=== PATIENT | female | born 1980 | race Hispanic/Latino ===

== ENCOUNTER 2019-11-07 18:11 | Inpatient (IN) | payer MEDICAID ==
[~2019-11-07] VITALS: Ht 165.1 cm; Wt 68.0 kg
[2019-11-07] MEDS ORDERED: INSULIN HUMULIN R 100 UNIT/ML 3ML ONE ×2 (18:28→19:46)
[2019-11-07 18:33] LABS: BASOPHILS % (AUTO) 0.2 % (0.0-5.0); EOSINOPHILS % (AUTO) 0.1 % (0.0-8.0); HEMATOCRIT 33.1 % (36-48); LYMPHOCYTES % (AUTO) 15.5 % (21.0-51.0); MEAN CORPUSCULAR HGB CONC 27.8 g/dL (32.0-36.0); MEAN CORPUSCULAR VOLUME 107.8 fL (79-99); MONOCYTES % (AUTO) 6.6 % (3.0-13.0); NEUTROPHILS % (AUTO) 76.1 % (40.0-77.0); PLATELET COUNT (AUTO) 429 K/uL (130-400); RED BLOOD CELL COUNT(AUTO) 3.07 MIL/uL (4.00-5.50); RED CELL DISTRIBUTION WIDTH 14.8 % (11.0-15.5); WHITE BLOOD COUNT (AUTO) 8.8 K/uL (4.8-10.8)
[2019-11-07 18:35] LABS: ABG HCO3 10.8 mmol/L (21.0-28.0); ABG OXYGEN SATURATION 95.7 % (95.0-99.0); ABG PCO2 36 mmHg (32-45)
[2019-11-07 18:55] LABS: ALBUMIN 2.4 g/dL (3.5-5.0); BILIRUBIN,TOTAL 0.3 mg/dL (0.2-1.0); CREATININE 2.3 mg/dL (0.5-1.5); POTASSIUM 4.8 mmol/L (3.5-5.1); TOTAL PROTEIN, SERUM 6.7 g/dL (6.0-8.3)
[2019-11-07] MEDS ORDERED: SODIUM CHLORIDE 0.9% 1000ML 1,000 ML IV SCH ×2 (19:22)
[2019-11-07] MEDS ORDERED: DEXTROSE 5 %-0.45 % NACL 1,000 ML IV PRN (19:22)
[2019-11-07] MEDS ORDERED: POTASSIUM CHLORIDE 10MEQ/100ML 100 ML IV PRN (19:30)
[2019-11-07] MEDS ORDERED: LACTULOSE 20 GM/30 ML UDCUP PO PRN (19:30)
[2019-11-07] MEDS ORDERED: ACETAMINOPHEN 325 MG TAB PO PRN ×2 (19:30)
[2019-11-07] MEDS ORDERED: SODIUM CHLORIDE 0.9% 100 ML IV ONE (19:48)
[2019-11-07 19:59] LABS: HEMOGLOBIN A1C 11.1 % (4.0-6.0)
[2019-11-07 20:06] LABS: THYROID STIMULATING HORMONE 0.58 uIU/mL (0.36-3.74)
[2019-11-07] MEDS ORDERED: LORAZEPAM 2 MG/ML 1 ML VIAL ONE (20:06)
[2019-11-07 20:20] LABS: APPEARANCE,URINE Cloudy (CLEAR); BILIRUBIN,URINE Negative (NEGATIVE); COLOR,URINE Yellow (YELLOW); GLUCOSE, URINE (UA) >=1000 mg/dL (NEGATIVE); KETONES,URINE 15 mg/dL (NEGATIVE); LEUKOCYTE ESTERASE ,URINE Negative (NEGATIVE); NITRATE,URINE Negative (NEGATIVE); OCCULT BLOOD,URINE Trace (NEGATIVE); PROTEIN,URINE 300 mg/dL (NEGATIVE); UROBILINOGEN,URINE 0.2 mg/dL (0.2-1.0)
[2019-11-07 20:23] LABS: HCG,QUAL RESULT NEGATIVE (NEGATIVE)
[2019-11-07 20:27] LABS: AMPHET/METH SCREEN,URINE NEGATIVE (NEGATIVE); BARBITURATE SCREEN, URINE NEGATIVE (NEGATIVE); BENZODIAZEPINES SCREEN,URINE POSITIVE (NEGATIVE); CANNABINOID SCREEN,URINE NEGATIVE (NEGATIVE); COCAINE SCREEN,URINE NEGATIVE (NEGATIVE); OPIATE SCREEN,URINE NEGATIVE (NEGATIVE); PHENCYCLIDINE SCREEN,URINE NEGATIVE (NEGATIVE)
[2019-11-07 20:42] LABS: WBC,URINE 0-1 /HPF (0-1)
[2019-11-07 20:43] LABS: BACTERIA,URINE Moderate /HPF (None Seen); SQUAMOUS EPITHELIAL CELL,UR Rare /HPF (0-2)
[2019-11-07] MEDS: FAMOTIDINE/PF 20 MG/2 ML VIAL IV SCH (21:00)
[2019-11-07] MEDS: CEFTRIAXONE SODIUM 1 GM IVP SCH (21:00)
[2019-11-07] MEDS: INSULIN HUMULIN R 100 UNIT/ML 3ML SQ SCH (21:00)
[2019-11-07 22:00] LABS: ABG BASE EXCESS -10.3 mmol/L (-2.0-3.0); ABG HCO3 16.5 mmol/L (21.0-28.0); ABG OXYGEN SATURATION 90.2 % (95.0-99.0); ABG PCO2 39 mmHg (32-45)
[2019-11-07] MEDS ORDERED: CEFTRIAXONE SODIUM 1 GM ONE (22:09)
[2019-11-07 23:28] LABS: BASOPHILS % (AUTO) 0.2 % (0.0-5.0); EOSINOPHILS % (AUTO) 0.2 % (0.0-8.0); HEMATOCRIT 25.4 % (36-48); LYMPHOCYTES % (AUTO) 16.2 % (21.0-51.0); MEAN CORPUSCULAR HEMOGLOBIN 29.7 pg (27.0-33.0); MEAN CORPUSCULAR HGB CONC 31.9 g/dL (32.0-36.0); MONOCYTES % (AUTO) 8.7 % (3.0-13.0); NEUTROPHILS % (AUTO) 73.7 % (40.0-77.0); PLATELET COUNT (AUTO) 371 K/uL (130-400); RED BLOOD CELL COUNT(AUTO) 2.73 MIL/uL (4.00-5.50); RED CELL DISTRIBUTION WIDTH 14.1 % (11.0-15.5); WHITE BLOOD COUNT (AUTO) 9.3 K/uL (4.8-10.8)
[2019-11-07 23:47] LABS: ALBUMIN 2.1 g/dL (3.5-5.0); CREATININE 1.9 mg/dL (0.5-1.5)
[2019-11-07] MEDS ORDERED: ASPIRIN 325 MG TABLET ONE (23:52)
[2019-11-07] MEDS ORDERED: NITROGLYCERIN 1GM/1 INCH PACKET TD ONE (23:52)
[2019-11-07 23:58] LABS: BILIRUBIN,TOTAL 0.1 mg/dL (0.2-1.0)
[2019-11-08] VITALS (18 sets, daily range): BP systolic 129–190; BP diastolic 65–111
[2019-11-08] MEDS ORDERED: DiphenhydrAMINE HCL 50 MG/ML VIAL ONE (01:45)
[2019-11-08] MEDS ORDERED: ONDANSETRON HCL 4 MG/2 ML VIAL ONE (02:02)
[2019-11-08] MEDS ORDERED: HYDROMORPHONE 1 MG/1 ML AMP IVP PRN (02:45)
[2019-11-08] MEDS ORDERED: HYDROMORPHONE 1 MG/1 ML AMP ONE (02:56)
[2019-11-08 03:01] LABS: BASOPHILS % (AUTO) 0.4 % (0.0-5.0); EOSINOPHILS % (AUTO) 0.9 % (0.0-8.0); LYMPHOCYTES % (AUTO) 23.1 % (21.0-51.0); MEAN CORPUSCULAR HEMOGLOBIN 30.3 pg (27.0-33.0); MEAN CORPUSCULAR HGB CONC 32.8 g/dL (32.0-36.0); MEAN CORPUSCULAR VOLUME 92.4 fL (79-99); MONOCYTES % (AUTO) 7.3 % (3.0-13.0); NEUTROPHILS % (AUTO) 67.3 % (40.0-77.0); PLATELET COUNT (AUTO) 393 K/uL (130-400); RED BLOOD CELL COUNT(AUTO) 3.14 MIL/uL (4.00-5.50); RED CELL DISTRIBUTION WIDTH 14.2 % (11.0-15.5); WHITE BLOOD COUNT (AUTO) 10.1 K/uL (4.8-10.8)
[2019-11-08 03:17] LABS: INR 0.87 (0.85-1.15); PARTIAL THROMBOPLASTIN TIME 28.7 SEC (26.3-35.5); PROTHROMBIN TIME 9.4 SEC (9.6-11.6)
[2019-11-08 03:40] LABS: ALBUMIN 2.4 g/dL (3.5-5.0); BILIRUBIN,TOTAL 0.1 mg/dL (0.2-1.0); CREATININE 1.5 mg/dL (0.5-1.5); POTASSIUM 3.5 mmol/L (3.5-5.1); TOTAL PROTEIN, SERUM 6.9 g/dL (6.0-8.3)
[2019-11-08 03:58] LABS: ABG HCO3 19.2 mmol/L (21.0-28.0); ABG OXYGEN SATURATION 96.6 % (95.0-99.0); ABG PCO2 41 mmHg (32-45)
[2019-11-08] MEDS: HYDRALAZINE HCL 20 MG/ML VIAL IV PRN ×2 (05:31→10:47)
[2019-11-08] MEDS: ONDANSETRON HCL 4 MG/2 ML VIAL IV PRN ×3 (07:28→20:02)
[2019-11-08] MEDS: INSULIN HUMULIN R 100 UNIT/ML 3ML SQ SCH (07:30)
[2019-11-08] MEDS ORDERED: METO10PO MC (08:05)
[2019-11-08] MEDS ORDERED: FURO80TA3 PO (08:05)
[2019-11-08] MEDS ORDERED: PREG150C PO (08:05)
[2019-11-08] MEDS ORDERED: INSU100I24 SQ (08:05)
[2019-11-08] MEDS ORDERED: PANT40TA54 PO (08:05)
[2019-11-08] MEDS ORDERED: AMLO-258 PO (08:05)
[2019-11-08] MEDS ORDERED: DICY10CA13 PO (08:05)
[2019-11-08] MEDS ORDERED: GABA-531 PO (08:06)
[2019-11-08] MEDS ORDERED: DIPH25TA51 PO (08:06)
[2019-11-08] MEDS ORDERED: CARV12.511 PO (08:06)
[2019-11-08] MEDS ORDERED: ACET-2123 PO (08:06)
--- NOTE | 2019-11-08 08:15 | NUR ---
PT HAS BEEN RESTLESS AND YELLING OUT THAT SHE IS HURTING FROM HER BACK. PLACES HER FINGERS IN HER MOUTH AND STATES THAT SHE WANTS TO THROW UP.. PT HAS BEEN ADVISED THAT SHE CAN'T BE DOING THAT, PT WAS MEDICATED WITH ZOFRAN.
[2019-11-08] MEDS: ENOXAPARIN SODIUM 100 MG/1 ML SQ SCH ×2 (08:42→20:03)
[2019-11-08] MEDS: FAMOTIDINE/PF 20 MG/2 ML VIAL IV SCH ×2 (08:42→20:02)
[2019-11-08] MEDS ORDERED: ENOXAPARIN SODIUM 40 MG/0.4 ML SYRINGE SQ SCH (09:00)
--- NOTE | 2019-11-08 11:00 | NUR ---
PT WAS ASSESSED BY CORRINA CHAO CHIEF MEDICAL TECHNOLOGIST AND ORDERS NOTED. MS. CHAO WAS ABLE TO ASSESS THE PAIN THAT PT HAS BEEN COMPLAINING ABOUT AND ORDERED AN EXTRA DOSE OF DILAUDID FOR THE VQ PROCEDURE.
--- NOTE | 2019-11-08 11:30 | NUR ---
PT REFUSING TO GO TO VQ PROCEDURE BECAUSE SHE STATED THAT HER BACK HURT AND COULD NOT LAY FLAT. MS. CHAO WAS NOTIFIED AND PT SIGNED REFUSAL FOR TREATMENT. VQ STAFF NOTIFIED.
[2019-11-08] MEDS ORDERED: HYDROMORPHONE HCL 0.5 MG/0.5 ML ML IVP SCH (11:45)
[2019-11-08] MEDS ORDERED: INSULIN REGULAR, HUMAN 3ML 100 UNIT in SODIUM CHLORIDE 0.9% 99 ML IV PRN ×2 (12:30)
--- NOTE | 2019-11-08 15:50 | NUR ---
PT HAS REFUSED TO HAVE LAB DRAWN AND HAS BEEN ADVISED THAT LAB RESULTS WERE NECESSARY IN ORDER TO KNOW THE PLAN OF TREATMENT, SHE WAS ADVISED THAT SHE NEEDED TO SIGN ANOTHER FORM OF REFUSAL AND SHE DID. NOTIFIED CORRINA TERAN.
--- NOTE | 2019-11-08 19:13 | NUR ---
D/C PLAN CM spoke to patient's spouse named Irving Cao. States pt has a provider and he also assists in care. Reports pt has wk and w/c at home. Plan to home. No needs verbalized. CM to f/u. Addendum: 11/08/19 at 1915 by JANEL WAITE CM Amended: Links added.
--- NOTE | 2019-11-08 19:30 | NUR ---
ASSESSMENT PT IN BED, STRETCHING ARMS OVER SIDE RAILS. PT MOVING SELF IN ARM IN VARIOUS POSITIONS I.E STRETCHING LEGS OVER HER HEAD, STRETCHING ARMS AND LEGS OVER SIDE RAILS. PT CRYING (NO TEARS NOTED)/MOANING DEMANDING PAIN MEDS. ASSESSMENT COMPLETED. SEE FLOW SHEET.
--- NOTE | 2019-11-08 19:50 | NUR ---
DR CARL HENRY MADE AWARE OF CONSULT, MEDS AND PT BEHAVIOUR
[2019-11-08 19:57] LABS: CREATININE 1.3 mg/dL (0.5-1.5); MAGNESIUM 1.6 mg/dL (1.80-2.40); PHOSPHORUS 2.7 mg/dL (2.5-4.9); POTASSIUM 3.5 mmol/L (3.5-5.1)
[2019-11-08] MEDS: CEFTRIAXONE SODIUM 1 GM IVP SCH (20:02)
--- NOTE | 2019-11-08 20:30 | NUR ---
DR JUNIOR PACHECO MADE AWARE PT WANTING TO LEAVE AMA. DR PACHECO SPOKE WITH PT STRESSED IMPORTANCE OF STAYING IN HOSPITAL INFORMED PT OF RISKS AND POSSIBLE IF PT LEFT AMA. PT STATED "I'M LEAVING. LAISHA IS AT THE DOOR. I NEED TO GO." PT INFORMED SHE WAS PREVIOUSLY MEDICATED WITH DILAUDID AND SHE CAN LEAVE UNTIL 2100." PT STATED "HE WON'T WAIT I HAVE TO GO" PT AGAIN INFORMED SHE COULD LEAVE AMA BUT AT 2100.
--- NOTE | 2019-11-08 20:33 | NUR ---
OPHTHALMIC ASST VICTOR M OPHTHALMIC ASST MADE AWARE PT LEAVING AMA
--- NOTE | 2019-11-08 20:40 | NUR ---
DR HENRY MADE AWARE PT LEAVING AMA
--- NOTE | 2019-11-08 20:55 | NUR ---
SANDALS PT STATED HER ADIDAS WERE MISSING. AREA AT BEDSIDE REVIEWED, NO ADIDAS SANDALS NOTED. SECURITY CALL TO CHECK FOR BELONGINGS. SOCKS WITH GRAIN BROKER GIVEN TO PT, PT PUT THEM ON. PT ASKED TO CALL HER BOYFRIEND TO CHECK IF THE SANDALS WERE WITH HIM. PT REFUSED.
--- NOTE | 2019-11-08 21:00 | NUR ---
PT STATED SHE LIVED IN [place]. PT INSTRUCTED IF NT FEELING WELL, DIZZY, WEAK, VOMITING OCCUR TO GO TO E.R. IN [place]. PT STATED "I JUST WANT TO LEAVE"
--- NOTE | 2019-11-08 21:20 | NUR ---
AMA PT TAKEN TO E.R. VIA WHEEL CHAIR. LAISHA SERRATO WAITING FOR PT. MR. SERRATO INFORMED PT COULDN'T FIND HER ADIDAS SANDALS. MR. SERRATO STATED HE HAD PT SANDALS. MR. SERRATO WAS ALSO ASKED TO SIGN AMA PAPERS PT HAD BEEN MEDICATED. WHILE PAPERS WERE BEING SIGNS PT ATTEMPTED TO GET OUT WHEEL CHAIR AND WAS NOTED ON HER KNEES. SECURITY WAS CALLED AND ASSISTED MR. SERRATO TO PUT PT IN VEHICLE. I ASKED THE IF SHE WANTED X-RAYS DONE. PT REFUSED. I ATTEMPTED TO PLACE HER SOCK THAT CAME OFF ON AND REFUSED. PT STATED "NO I JUST WANT TO LEAVE"
== END 2019-11-08 21:20 | disposition left against medical advice (07) | DRG 469 ==
LOC: EDH 18:11 → EDHIP 19:22 → DAHIP 11-08 03:21
PROVIDERS: ADMIT Hospitalist; ATTEND Hospitalist
DX: N17.9 Acute kidney failure, unspecified (principal); G93.41 Metabolic encephalopathy; E10.10 Type 1 diabetes mellitus with ketoacidosis without coma; E10.22 Type 1 diabetes mellitus with diabetic chronic kidney disease; I50.9 Heart failure, unspecified; I13.0 Hypertensive heart and chronic kidney disease with heart failure and stage 1 through stage 4 chronic kidney disease, or unspecified chronic kidney disease; D64.9 Anemia, unspecified; N18.9 Chronic kidney disease, unspecified; N39.0 Urinary tract infection, site not specified; Z79.4 Long term (current) use of insulin; Z91.14 Patient's other noncompliance with medication regimen; Z88.8 Allergy status to other drugs, medicaments and biological substances
CPT/HCPCS: 36415; 36600; 70450; 71045; 76770; 80048; 80053; 80061; 80305; 81001; 81025; 82010; 82570; 82803; 82948; 83036; 83605; 83735; 83880; 84100; 84156; 84443; 85025; 85378; 85610; 85730; 87088; 93005; 93970; G0378; J0360; J0696; J1170; J1200; J1650; J1815; J2060; J2405; J3490; J7042